=== PATIENT | female | born 2000 | race Caucasian/White ===

== ENCOUNTER → 2018-03-10 14:01 | Outpatient (CLI) | payer BC, SELFPAY ==
--- NOTE | 2018-03-10 14:06 | CT_ITS ---
STUDY: CT SOFT TISSUE NECK WITH CONTRAST REASON FOR EXAM: Female, 17 years old. RT UPPER LAT NECK SWELLING-INTERMITTENT SINCE SEP 2017. Pt scheduled for tonsillectomy 03/25/18 RADIATION DOSAGE (If Supplied By Facility): CTDIvol = ( 11.83 ) mGy, DLP = ( 345.52 ) mGycm TECHNIQUE: The patient was scanned in a multi-detector CT scanner. High resolution transaxial imaging was performed following intravenous administration of 75ml ml of Isovue 370 contrast material. Sagittal and coronal images were reconstructed. Individualized dose optimization techniques were used for this CT. COMPARISON: None. FINDINGS: Normal bilateral parotid glands. Normal bilateral application systems administrator spaces. Normal bilateral parapharyngeal spaces. Normal bilateral carotid spaces. Normal bilateral sublingual and submandibular glands and spaces. Normal visualized nasopharynx. Normal retropharyngeal space. Normal perivertebral space. There is mild enlargement of the right tonsillar pillar is compared to the left. There is serpiginous enhancement of both tonsils. This suggests acute tonsillitis. The visualized tongue, tongue base and oropharynx are normal. Normal epiglottis, bilateral vallecula and hypopharynx. The pre-epiglottic and paraglottic adipose spaces are normal. Normal visualized bilateral piriform sinuses, aryepiglottic folds, vocal cords, and arytenoid-cricoid articulations. Normal subglottic trachea. Normal bilateral lobes of the thyroid gland. Normal visualized pulmonary apices. Normal visualized paranasal sinuses. Normal visualized cervical spine. CT/Soft Tissue Neck WITH Contrast IMPRESSION: Bilateral acute tonsillitis. No evidence for abscess. No airway compromise. Electronically Signed: Han Valdovinos MD at 20:56 EDT , Service support ,
== END ==
PROVIDERS: Family Provider Pediatrics; PCP Pediatrics; Visit Provider Otolaryngology
DX: R22.1 Localized swelling, mass and lump, neck (principal)
CPT/HCPCS: 70491; Q9967

== ENCOUNTER → 2018-03-25 16:15 | Outpatient (CLI) | payer BC, SELFPAY ==
--- NOTE | 2018-03-25 | TONS_PTH ---
PATIENT: RANDY RAMIREZ LOC: [facility] U#:[id number] AGE/SX: 25/ ROOM: RE03/25/[address]: Dr. Rishi Alvarado MD : 2000 BED: DIS: SPEC #: [id number] RECD: 03/25/18 15:29 STATUS: JAIR DKUESHolly #: [id number] REBECCA: 03/25/18 00:[address]: Rishi Alvarado DEPT: SURGICAL PATHOLOGY RECD BY: Mikhail Vargas ENTERED: 03/26/18 09:07 SP TYPE: TONSILS OTHR DR: Dr. Bharat Heaton MD [facility] Tissues: Tonsil, NOS Procedures: Surgery Specimen Level III HEADER OPERATION: Tonsillectomy PRE-OP DIAGNOSIS: Chronic tonsillitis TISSUE SUBMITTED: Tonsils (right pinned) MICROSCOPIC DIAGNOSIS Bilateral tonsils: Reactive lymphoid hyperplasia, consistent with chronic tonsillitis. Focal actinomyces colonization. SJ:alberto 03/27/18 MICROSCOPIC DESCRIPTION Slides are reviewed. GROSS DESCRIPTION Received is one container labeled with the patient's name and designated tonsils - pin on right are two tonsils that in aggregate weigh 11 gm. The right tonsil has a pin on it and measures 4 x 2 x 1.8 cm. The left tonsil measures 4 x 2 x 1.5 cm. Both tonsils are similar in appearance. The external surfaces are pink-keith, smooth, glistening and somewhat lobulated. Focally they are hemorrhagic, granular and bear cautery artifact. Serial cross sections through the tonsils reveal normal tonsillar architecture. Sections are submitted in two cassettes as follows: 1 - right tonsil, 2 - left tonsil. / BRYAN:alberto 03/26/18 TC:3 CPT: 38836 x2
== END ==
PROVIDERS: Visit Provider Otolaryngology
DX: J35.01 Chronic tonsillitis (principal)
CPT/HCPCS: 88304

== ENCOUNTER 2019-02-12 22:36 | Emergency (ER) | payer BC, SELFPAY ==
[2019-02-12 22:36] VITALS: BP 88/46; PULSE 58; RESP 18; TEMP 36.1; O2SAT 99; BMI 18.0
--- NOTE | 2019-02-12 23:22 | ED.VIS.GEN ---
History of Present Illness Chief Complaint: Abd Pain Narrative: Patient is a 18-year-old female who presents with right flank pain. She states she was in the shower about 9:00 2 hours before presentation when she had sudden onset right flank pain which she describes as sharp and stabbing. She reports this is severe. No history of prior similar symptoms. She denies any nausea vomiting diarrhea. She is currently on her menstrual period. She ate a cheeseburger about 1/2-hour before the symptoms. She has never had any prior similar symptoms with fatty or greasy foods. No fevers. Past Medical History - Allergies and Home Meds Allergies/Adverse Reactions: Allergies No Known Allergies Allergy (Verified 06/08/16 15:43) Primary Care Physician: Bharat Heaton MD [Primary Care Provider] - Past Medical History: - - ADHD Surgical History: no surgical history Smoking Status: Never smoker Review of Systems All systems negative except as indicated Physical Exam Vital Signs/Narrative: Vital Signs Temp Pulse Resp BP Pulse Ox 02/12/19 22:36 97 F L 58 L 18 88/46 L 99 General: Well nourished, Well developed Head: Normocephalic Eyes: EOMI ENT: Moist mucous membranes Neck: Supple Cardiovascular: Regular rate, Regular rhythm Respiratory: No distress, CTA bilaterally Abdomen: Soft, Nondistended, - - Patient has midline abdominal tenderness/flank pain no guarding no rebound no Bergman sign no pain at McBurney's point Skin: Normal color Neurological: Alert Psychological: Normal affect Diagnostic/Tx/Re-eval Impressions Abdomen/Pelvis CT 02/13/19 23:21 IMPRESSION: Mild fecal stasis. No acute findings in the abdomen or pelvis. Specifically there is no acute appendicitis or diverticulitis. A retroverted uterus. No abnormal adnexal masses and no free fluid in the cul-de-sac Electronically Signed: Gage Ma MD at 0:49 EDT Tel , Service support , 02/13/19 23:21 Abdomen/Pelvis without Cont [CT] Stat Laboratory Results 02/12/19 02/12/19 02/12/19 23:40 23:40 23:40 WBC 7.7 RBC 5.08 Hgb 13.1 Hct 40.2 MCV 79.1 L MCH 25.8 L MCHC 32.6 RDW 14.5 RDW Differential 41.6 Plt Count 303 MPV 10.5 Immature Gran % (Auto) 0.400 Neut % (Auto) 86.0 H Lymph % (Auto) 12.0 L [place] % (Auto) 0.4 Eos % (Auto) 0.9 Baso % (Auto) 0.3 Absolute Neuts (auto) 6.6 Absolute Lymphs (auto) 0.93 Total Counted Not Reportable Sodium 139 Potassium 3.7 Chloride 105 Carbon Dioxide 26.0 Anion Gap 8 BUN 13 Creatinine 0.82 Estim Creat Clear Calc 90.12 Est GFR (MDRD) Af Amer 113 Est GFR (MDRD) Non-Af 94 BUN/Creatinine Ratio 15.8 Glucose 134 H Calcium 8.9 Total Bilirubin 0.70 AST 14 L ALT 15 Alkaline Phosphatase 66 Total Protein 7.6 Albumin 3.8 Globulin 3.8 Albumin/Globulin Ratio 1.0 Lipase 107 Urine Color Urine Clarity Urine pH Ur Specific [place] Urine Protein Urine Glucose (UA) Urine Ketones Urine Occult Blood Urine Nitrite Urine Bilirubin Urine Urobilinogen Ur Leukocyte Esterase Urine RBC Urine WBC Ur Squamous Epith Cells Urine Bacteria Urine Mucus Urine Test Negative 02/12/19 23:40 WBC RBC Hgb Hct MCV MCH MCHC RDW RDW Differential Plt Count MPV Immature Gran % (Auto) Neut % (Auto) Lymph % (Auto) [place] % (Auto) Eos % (Auto) Baso % (Auto) Absolute Neuts (auto) Absolute Lymphs (auto) Total Counted Sodium Potassium Chloride Carbon Dioxide Anion Gap BUN Creatinine Estim Creat Clear Calc Est GFR (MDRD) Af Amer Est GFR (MDRD) Non-Af BUN/Creatinine Ratio Glucose Calcium Total Bilirubin AST ALT Alkaline Phosphatase Total Protein Albumin Globulin Albumin/Globulin Ratio Lipase Urine Color Yellow Urine Clarity Sl. Cloudy Urine pH 6.0 Ur Specific [place] 1.025 Urine Protein 30 H Urine Glucose (UA) Normal Urine Ketones 5 H Urine Occult Blood 250 H Urine Nitrite Positive H Urine Bilirubin Negative Urine Urobilinogen Normal Ur Leukocyte Esterase 25 H Urine RBC 25-50 SEEN Urine WBC 5-10 SEEN Ur Squamous Epith Cells 0-5 SEEN Urine Bacteria 3+ Urine Mucus 0 SEEN Urine Test - Medical Decision Making Patient was treated with IV fluids and Toradol. She is improved on reevaluation. Labs unremarkable except for evidence of UTI. CT of the abdomen and pelvis unremarkable. Patient was given a dose of Rocephin here while awaiting results and CT imaging. She will be discharged on Bactrim. All questions answered bedside, patient agreeable to plan, patient discharged. ED Disposition - Plan for ED Patient: Diagnosis: Abdominal pain, UTI (urinary tract infection) Instructions: ED UTI Cystitis Female, ED Abdominal Pain Unkn Cause Prescriptions: Smz/Tmp Ds [Bactrim Ds] 1 tab PO BID #6 tab Referrals: Bharat Heaton MD [Primary Care Provider] -
[2019-02-12] MEDS: Ketorolac 30 MG/ML Syringe IV (23:40)
[2019-02-12] MEDS: 0.9% Normal Saline 1,000 ML 999 ML IV (23:40)
[2019-02-12 23:50] LABS: Mucous, Urine 0 SEEN /hpf (<or=2+)
[2019-02-12 23:51] LABS: Absolute Lymphocyte Count 0.93 X10^3/ul (0.83-4.51); Absolute Neutrophil Count 6.6 X10^3/uL (2.0-7.7); Basophil# 0.02 X10^3/uL; Basophil% 0.3 % (0-1); Eosinophil# 0.07 X10^3/uL; Eosinophils% 0.9 % (0-5); Hematocrit 40.2 % (37-47); Hemoglobin 13.1 g/dl (12.0-15.0); Lymphocyte # 0.93 X10^3/ul (4.0); Mean Corp Hgb Conc 32.6 g/gl (32-36); Mean Corpuscular Hgb 25.8 pg (27.0-32.0); Mean Corpuscular Volume 79.1 fL (81-99); Mean Platelet Vol. 10.5 fl (6.2-12.0); Monocyte# 0.03 X10^3/uL; Monocyte% 0.4 % (0-10); Neutrophil # 6.64 X10^3/uL (2.7-7.7); Platelet Count 303 K/mm3 (150-450); RBC Distribution Width CV 14.5 % (11.6-14.6); RBC Distribution Width SD 41.6 fl (35.1-43.9); Red Blood Count 5.08 M/mm3 (4.2-5.4); White Blood Count 7.7 K/mm3 (4.4-11.0)
[2019-02-12 23:53] LABS: POSITIVE COUNT NO; POSITIVE DIFFERENTIAL NO; POSITIVE MORPHOLOGY NO
[2019-02-12 23:54] LABS: Color, Urine Yellow (Yellow); Glucose, Dipstick Normal (Normal); Internal QC Validated? YES +Cl - CLEAR BKGD; Ketone-Dipstick 5 mg/dl (Negative); Leukocyte Esterase-Dipstick 25 /ul (Negative); Nitrite-Dipstick Positive (Negative); Occult Blood-Urine 250 /ul (Negative); Pregnancy, Urine Negative Negative; Protein-Dipstick 30 mg/dl (Negative); Specific Gravity, Urine 1.025 (1.002-1.030); Urine Bilirubin Dipstick Negative (Negative); Urine Clarity Sl. Cloudy (Clear); Urine Urobilinogen Normal (Normal)
[2019-02-12 23:57] LABS: Bacteria 3+ /hpf (None Seen); Red Blood Cells-Urine 25-50 SEEN /hpf (0-5); Squamous Epithelial Cells - UA 0-5 SEEN /hpf (5-10); White Blood Cells 5-10 SEEN /hpf (0-5)
[2019-02-13 00:12] LABS: AST(SGOT) 14 U/L (15-37); Alanine Aminotransfer ALT/SGPT 15 U/L (13-56); Albumin, Serum 3.8 g/dL (3.2-5.0); Alkaline Phosphatase 66 U/L (45-117); Anion Gap 8 (5-15); BUN 13 mg/dL (7-18); BUN/Creat Ratio 15.8 RATIO (10-20); Calcium,Total 8.9 mg/dL (8.5-10.1); Chloride 105 mmol/L (98-107); Creatinine, Serum 0.82 mg/dL (0.55-1.02); EST Glomerular Filtration Rate 94 mL/min (>60); Est Glom Filt Rate - Afr Amer 113 mL/min (>60); Estimated Creatinine Clearance 90.12 ml/min; Globulin 3.8 g/dL (2.2-4.2); Glucose 134 mg/dL (74-106); Lipase 107 U/L (73-393); Potassium 3.7 mmol/L (3.5-5.1); Protein, Total 7.6 g/dL (6.4-8.2); Sodium Level 139 mmol/L (136-145)
[2019-02-13] MEDS: Ceftriaxone 1 GM/50 ML BAG IV (00:53)
[2019-02-13 00:56] VITALS: BP 109/69; PULSE 93; RESP 18; O2SAT 100
[2019-02-13 01:34] VITALS: BP 109/69; PULSE 93; RESP 18; O2SAT 100
--- NOTE | 2019-02-13 23:21 | CT_ITS ---
STUDY: CT ABDOMEN AND PELVIS WITHOUT CONTRAST REASON FOR EXAM: Female, 18 years old. Right-sided abdominal pain. Negative test RADIATION DOSAGE (If Supplied By Facility): CTDIvol = ( 6.05 ) mGy, DLP = ( 297.88 ) mGycm TECHNIQUE: Transaxial images were obtained from the dome of the diaphragm to the symphysis pubis without oral contrast, and without intravenous contrast. Sagittal and coronal images were reconstructed. Individualized dose optimization techniques were used for this CT. COMPARISON: None. FINDINGS: The lung bases are clear. The liver is normal. No dilated intrahepatic biliary radicles. The gallbladder is normal with no calcifications within it. There is no pericholecystic fluid collection or streakiness The spleen is normal. The pancreas is normal. Both adrenals are normal. The kidneys are normal with no masses, calculi or hydronephrosis The stomach is normal. There is no bowel distention, acute appendicitis or diverticulitis. No constricting lesions are seen in large bowel. Mild fecal stasis The abdominal wall is intact with no hernias. There is no ascites or any free intraperitoneal air. No indication of epiploic appendagitis The vascular structures in the retroperitoneum are normal. There is no retrocrural, retroperitoneal or mesenteric adenopathy. The bones and joints are normal. The urinary bladder is normal. The uterus is retroverted. No abnormal adnexal masses and no free fluid in the [id number]--. There is no inguinal or pelvic adenopathy. There is no inguinal hernia. . CT/Abdomen/Pelvis without Cont IMPRESSION: Mild fecal stasis. No acute findings in the abdomen or pelvis. Specifically there is no acute appendicitis or diverticulitis. A retroverted uterus. No abnormal adnexal masses and no free fluid in the cul-de-sac Electronically Signed: Gage Ma MD at 0:49 EDT Tel , Service support ,
== END 2019-02-13 01:35 | disposition home or self-care (01) ==
LOC: ED 23:39
PROVIDERS: Emergency Provider Emergency Medicine; Family Provider Pediatrics; PCP Pediatrics
DX: N39.0 Urinary tract infection, site not specified (principal); R10.9 Unspecified abdominal pain; F90.9 Attention-deficit hyperactivity disorder, unspecified type; Z79.899 Other long term (current) drug therapy
CPT/HCPCS: 74176; 80053; 81001; 81025; 83690; 85025; 96361; 96365; 96375; 99283; J7030; J7050